=== PATIENT | male | born 1960 | race Caucasian/White ===

== ENCOUNTER 2025-01-22 16:33 | Emergency (ER) | payer OTHER ==
[~2025-01-22] VITALS: Ht 182.9 cm; Wt 108.9 kg
[2025-01-22 16:41] VITALS: TEMP 98.2
[2025-01-22 17:09] LABS: PLATELET COUNT (AUTO) 207 K/uL (150-450); RED BLOOD CELL COUNT(AUTO) 5.29 MIL/uL (4.5-6.0); RED CELL DISTRIBUTION WIDTH 14.8 % (11.5-15.0); WHITE BLOOD COUNT (AUTO) 10.8 K/uL (4.3-11.0)
[2025-01-22 17:14] LABS: APPEARANCE,URINE CLEAR (CLEAR); BLOOD, URINE Large Ery/uL (NEGATIVE); LEUKOCYTE ESTERASE ,URINE Negative (NEGATIVE); UGLUCOSE Negative (NEGATIVE)
[2025-01-22 17:15] LABS: NITRITE, URINE NEGATIVE (NEGATIVE)
[2025-01-22 17:16] LABS: ADD URINE CULTURE NO; CALCIUM OXALATE CRYSTALS,UR Rare /HPF (None Seen); SQUAMOUS EPITHELIAL CELL,UR None Seen /HPF (None Seen)
[2025-01-22 17:22] LABS: CALCIUM, SERUM 9.6 mg/dL (8.5-10.1); CREATININE 1.6 mg/dL (0.6-1.3)
[2025-01-22 17:34] LABS: UREA NITROGEN, BLOOD 21.0 mg/dL (7-18)
[2025-01-22 18:08] LABS: BASOPHILS % (MANUAL) 0 % (0.0-2.0); EOSINOPHILS % (MANUAL) 2 % (0-4); LYMPHOCYTES % (MANUAL) 26 % (16-48); MONOCYTES % (MANUAL) 8 % (0-11.0); NEUTROPHILS % (MANUAL) 64 (42-76)
[2025-01-22 18:09] LABS: PLATELET ESTIMATE N
[2025-01-22] MEDS ORDERED: SULF1TAB48 PO (18:10)
[2025-01-22] MEDS ORDERED: KETOROLAC TROMETHAMINE INJ 30 MG/ML VIAL ONE (18:12)
[2025-01-22] MEDS: KETOROLAC TROMETHAMINE INJ 30 MG/ML VIAL IM ONE (18:16)
[2025-01-22 18:33] LABS: SODIUM SERUM 139.0 mmol/L (136-145)
[2025-01-22 18:54] VITALS: BP 126/84; O2SAT 99
== END 2025-01-22 18:40 | disposition home or self-care (01) ==
LOC: ER 16:46
DX: R30.0 Dysuria (principal); I10 Essential (primary) hypertension; R39.198 Other difficulties with micturition
CPT/HCPCS: 99285; 74176; 96372; 85027; 80048; 85007; 81001; 36415; J1885; 87086-TC